=== PATIENT | female | born 1975 | race Hispanic/Latino ===

== ENCOUNTER 2019-12-02 13:14 | Emergency (ER) | payer SELFPAY ==
[2019-12-02] MEDS ORDERED: CEFTRIAXONE SODIUM 1 GM ONE (13:42)
[2019-12-02] MEDS ORDERED: LIDOCAINE HCL-MPF 1% 2ML VIAL ONE (13:42)
[2019-12-02] MEDS ORDERED: ACETAMINOPHEN ELIXIR 650 MG/20.3 ML UDCUP ONE (13:45)
[2019-12-02 14:16] LABS: RAPID GROUP A STREP NEGATIVE (NEGATIVE)
== END 2019-12-02 14:45 | disposition home or self-care (01) ==
LOC: EDH 13:14
DX: L04.0 Acute lymphadenitis of face, head and neck (principal)
CPT/HCPCS: 87804 ×2; 87880; 96372; 99283; J0696; J3490

== ENCOUNTER 2020-01-20 | Emergency (ER) | payer SELFPAY | END 2020-01-20 23:27 | disposition home or self-care (01) ==

== ENCOUNTER 2020-08-12 15:15 | Emergency (ER) | payer OTHER ==
[2020-08-12 15:51] LABS: HEMATOCRIT 32.1 % (36-48); MEAN CORPUSCULAR HEMOGLOBIN 32.7 pg (27.0-33.0); MEAN CORPUSCULAR VOLUME 96.4 fL (79-99); PLATELET COUNT (AUTO) 127 K/uL (130-400); RED BLOOD CELL COUNT(AUTO) 3.33 MIL/uL (4.00-5.50); RED CELL DISTRIBUTION WIDTH 12.6 % (11.0-15.5); WHITE BLOOD COUNT (AUTO) 3.7 K/uL (4.8-10.8)
[2020-08-12 15:52] LABS: BASOPHILS % (AUTO) 1.9 % (0.0-5.0); EOSINOPHILS % (AUTO) 3.3 % (0.0-8.0); LYMPHOCYTES % (AUTO) 40.5 % (21.0-51.0); MONOCYTES % (AUTO) 6.8 % (3.0-13.0)
[2020-08-12] MEDS ORDERED: KETOROLAC TROMETHAMINE 15MG/ML ONE (16:05)
[2020-08-12] MEDS ORDERED: FAMOTIDINE/PF 20 MG/2 ML VIAL IV ONE (16:06)
[2020-08-12 16:07] LABS: CREATININE 0.9 mg/dL (0.5-1.5); POTASSIUM 3.6 mmol/L (3.5-5.1)
[2020-08-12 16:12] LABS: BILIRUBIN,TOTAL 0.3 mg/dL (0.2-1.0)
== END 2020-08-12 19:10 | disposition home or self-care (01) ==
LOC: EDH 15:15
DX: K29.00 Acute gastritis without bleeding (principal); B02.9 Zoster without complications
CPT/HCPCS: 36415; 80053; 81025; 82150; 83690; 85025; 96374; 96375; 99284; J1885; J3490

== ENCOUNTER 2022-09-16 17:18 | Emergency (ER) | payer OTHER ==
[~2022-09-16] VITALS: Ht 157.5 cm; Wt 74.8 kg
[2022-09-16 19:42] VITALS: BP 118/64
== END 2022-09-16 19:48 | disposition home or self-care (01) ==
LOC: EDH 17:18
DX: B34.9 Viral infection, unspecified (principal); Z20.822 Contact with and (suspected) exposure to COVID-19
CPT/HCPCS: 99283; 87635; 87880; 87804 ×2; C9803